=== PATIENT | female | born 1995 | race Caucasian/White ===

== ENCOUNTER 2023-02-26 09:44 | Outpatient (AMB) | payer OTHER, SELFPAY ==
[2023-02-26 10:19] VITALS: BP 136/88; PULSE 94; TEMP 36.7; O2SAT 99; BMI 39.2
--- NOTE | 2023-02-26 10:19 | MHC.OFFVIS ---
Intake Vital Signs 02/26/23 10:19 Height 5 ft 5 in Weight 235 lb 6 oz BMI 39.2 BP 136/88 Blood Pressure Location Lt brachial Position Sitting Pulse 94 Pulse Source Pulse Oximeter Temp 98.0 F Temp Source Temporal Artery Scan Pulse Oximetry (%) 99 Oxygen Delivery Method Room Air Intake Visit Reasons: EST/strep? (lobby) Intake Note: Pt presents to the office today for c/o severe sore throat and stuffy nose that started yesterday. Allergies No Known Allergies Allergy (Verified 03/04/23 13:26) PFSH Social History Household Members: Spouse Housing: House Alcohol intake: current Alcohol intake frequency: a few times a week Patient Tobacco Use Status: Former Tobacco user Substance Use Type: Marijuana Physical Exam Vital Signs: Last Vital Signs Temp 98.0 F 02/26/23 10:19 Pulse 94 02/26/23 10:19 BP 136/88 02/26/23 10:19 Pulse Ox 99 02/26/23 10:19 Oxygen Delivery Method Room Air 02/26/23 10:19 BMI result Body Mass Index 39.2 Results AMB Rapid Strep AMB Rapid Strep Negative Last Edit by Roz Roman MA on 02/26/23 10:33 Results Reviewed Results Reviewed: Laboratory Last Values Strep Scn [facility] Negative 02/26/23 10:32 Assessment & Plan Assessment & Plan (1) Sore throat: Code(s): J02.9 - Acute pharyngitis, unspecified Orders: Orders AMB Rapid Strep Screen 02/26/23 Z13.9 - Encounter for screening, unspecified Coding Level of Care Code Est Pt Level 2 (56748) Diagnoses Sore throat J02.9
== END 2023-02-26 11:04 | disposition home or self-care (01) ==
PROVIDERS: Visit Provider Emergency Medicine
DX: J02.9 Acute pharyngitis, unspecified (principal)
CPT/HCPCS: 87880; 99212

== ENCOUNTER 2023-03-04 13:18 | Outpatient (AMB) | payer OTHER, SELFPAY ==
--- NOTE | 2023-03-04 13:21 | AM.OFFWIN_ITS ---
Intake Vital Signs 03/04/23 13:26 Height 5 ft 5 in Weight 238 lb BMI 39.6 BP 120/72 Blood Pressure Location Rt brachial Position Sitting Pulse 89 Pulse Source Pulse Oximeter Temp 97.2 F Temp Source Temporal Artery Scan Pulse Oximetry (%) 99 Oxygen Delivery Method Room Air Intake Visit Reasons: EST/here last week not feeling better(lobby) Patient Tobacco Use Status: Former Tobacco user Allergies No Known Allergies Allergy (Verified 03/04/23 13:26) Do you need a note to return to daycare/school/sports/work: No HPI EST/here last week not feeling better(lobby) HPI Details 27[facility]. She was seen last week here on 02/26 for a sore throat. Rapid strep was negative, she was discharged with recommendations for conservative measures. She returns today with mostly resolved throat soreness, however has since developed cough with productive/yellow sputum, ear pressure bilaterally, and facial pain/pressure. T-max 101.0 degrees several days ago. No fever since then. COVID test at home have been negative. [facility] Social History Household Members: Spouse Housing: House Alcohol intake: current Alcohol intake frequency: a few times a week Patient Tobacco Use Status: Former Tobacco user Substance Use Type: Marijuana Review of Systems Const All systems reviewed & are unremarkable except as noted in HPI and below Physical Exam Vital Signs: Last Vital Signs Temp 97.2 F 03/04/23 13:26 Pulse 89 03/04/23 13:26 BP 120/72 03/04/23 13:26 Pulse Ox 99 03/04/23 13:26 Oxygen Delivery Method Room Air 03/04/23 13:26 BMI result Body Mass Index 39.6 Const General: cooperative and no acute distress HEENT Head: Yes normal to inspection and Yes normocephalic Ears: hearing grossly normal bilaterally, external ears normal and TM abnormal (Bilateral TM bulging, no erythema, no effusion) General nose exam: Normal external nose present and Nasal discharge present mucoid Face and sinus: Yes sinus tenderness (Frontal and maxillary) Mouth: Normal oral and palatal mucosa present and moist mucous membranes abnormal Throat: Yes posterior oropharynx normal Neck Neck: Yes no lymphadenopathy Resp Effort & Inspection: normal respiratory effort, able to speak in complete sentences and Actively coughing Quality: productive Auscultation: clear to auscultation bilaterally Cardio Jugular venous distension: no JVD Palpation: normal PMI Rate: regular rate Rhythm: regular rhythm Skin General skin exam: no rashes or lesions noted Extrem General: Yes capillary refill normal and Yes no clubbing, cyanosis or edema Psych Appearance: grossly normal Mental Status: mental status grossly normal Speech and movement: Normal speech and movement present Assessment & Plan Assessment & Plan (1) Acute maxillary sinusitis: Code(s): J01.00 - Acute maxillary sinusitis, unspecified Qualifiers: Recurrence: non-recurrent Qualified Code(s): J01.00 - Acute maxillary sinusitis, unspecified Plan: Azithromycin 5 days started. Reviewed indications, use, possible side effects of medication. Also advised patient to start taking an [id number] decongestant. May continue Tylenol/Motrin for any pain/fever. Advised to increase fluids. Patient will return to the clinic if she does not improve with these measures, or if symptoms worsen/new symptoms develop. Patient verbalizes understanding and agrees to plan. Medications: New azithromycin For 250 mg dose pack: take 500 mg today (day 1), then 250 mg for 4 days (days 2-5) PO 6 tabs 0RF J01.00 - Acute maxillary sinusitis, unspecified Coding Level of Care Code Est Pt Level 3 (38720) Diagnoses Acute non-recurrent maxillary sinusitis J01.00 Recurrence: non-recurrent
[2023-03-04 13:26] VITALS: BP 120/72; PULSE 89; TEMP 36.2; O2SAT 99; BMI 39.6
== END 2023-03-04 13:44 | disposition home or self-care (01) ==
PROVIDERS: Visit Provider Nurse Practitioner Family
DX: J01.00 Acute maxillary sinusitis, unspecified (principal)
CPT/HCPCS: 99213

== ENCOUNTER 2024-09-12 09:16 | Outpatient (AMB) | payer OTHER, SELFPAY ==
--- NOTE | 2024-09-12 09:19 | AM.OFFWIN_ITS ---
Intake Vital Signs 09/12/24 09:23 Weight 245 lb BP 130/90 H Blood Pressure Location Rt brachial Position Sitting Pulse 84 Pulse Source Pulse Oximeter Temp 98.4 F Temp Source Oral Pulse Oximetry (%) 98 Oxygen Delivery Method Room Air Intake Visit Reasons: EP Sore throat for 1 month Intake Note: Patient here for sore throat, and mucus that has been present for about 1 month. Patient Tobacco Use Status: Former Tobacco user Allergies No Known Allergies Allergy (Verified 09/12/24 09:29) Do you need a note to return to daycare/school/sports/work: Yes HPI HPI Comments History of Present Illness Details 28 y/o Female patient who [facility] with c/o Post- nasal drip that causes dry cough, Nasal congestion, Sore-throat and itchy throat. Reports that symptoms have been present for ~ 1 month now. Denies fevers, chills, fatigue, nausea or vomiting. [facility] Medical History (Updated 09/12/24 @ 10:09 by Keara Lyles NP) Allergic rhinitis Social History Household Members: Spouse Housing: House Alcohol intake: current Alcohol intake frequency: a few times a week Patient Tobacco Use Status: Former Tobacco user Substance Use Type: Marijuana Review of Systems Const All systems reviewed & are unremarkable except as noted in HPI and below Physical Exam Vital Signs: Last Vital Signs Temp 98.4 F 09/12/24 09:23 Pulse 84 09/12/24 09:23 BP 130/90 H 09/12/24 09:23 Pulse Ox 98 09/12/24 09:23 Oxygen Delivery Method Room Air 09/12/24 09:23 Const General: no acute distress Nutritional Appearance: obese Orientation/consciousness: patient oriented x3 HEENT Head: Yes normocephalic Ears: external ears normal and TM abnormal bulging bilateral and with fluid behind the TM bilateral General nose exam: Abnormal mucous membranes and turbinates present boggy and erythematous and Nasal discharge present Face and sinus: Yes sinuses nontender Mouth: moist mucous membranes Throat: Yes uvula midline Resp Effort & Inspection: normal respiratory effort and able to speak in complete sentences Auscultation: clear to auscultation bilaterally, no crackles, no rales, no rhonchi and no wheezes Cardio Heart sounds: S1 normal heart sound present and S2 normal heart sound present Neuro General: patient oriented x3 Assessment & Plan Assessment & Plan (1) Allergic rhinitis: Code(s): J30.9 - Allergic rhinitis, unspecified Qualifiers: Allergic rhinitis trigger: pollen Allergic rhinitis seasonality: unspecified Qualified Code(s): J30.1 - Allergic rhinitis due to pollen Plan: OTC Zrytec BID OTC Sudafed RTC if symptoms worse. Medications: New pseudoephedrine HCl ER (Sudafed 12 Hour) 120 mg PO Q12H 30 tabs 0RF J30.1 - Allergic rhinitis due to pollen cetirizine (Zyrtec) 10 mg PO DAILY 30 tabs 0RF J30.1 - Allergic rhinitis due to pollen Coding Level of Care Code Est Pt Level 4 (50434) Diagnoses Allergic rhinitis due to pollen, unspecified seasonality J30.1 Allergic rhinitis trigger: pollen Allergic rhinitis seasonality: unspecified Time Spent (min) 20
[2024-09-12 09:23] VITALS: BP 130/90; PULSE 84; TEMP 36.9; O2SAT 98
== END 2024-09-12 10:24 | disposition home or self-care (01) ==
PROVIDERS: Visit Provider Nurse Practitioner Family
DX: J30.1 Allergic rhinitis due to pollen (principal)

== ENCOUNTER → 2024-09-12 09:16 | Outpatient (BNVA) | payer OTHER, SELFPAY | PROVIDERS: Visit Provider Nurse Practitioner Family | DX: Z13.89 Encounter for screening for other disorder (principal) ==